=== PATIENT | male | born 1945 | race Caucasian/White ===

== ENCOUNTER 2017-04-24 12:17 | Inpatient (IN) ==
[2017-04-24] MEDS ORDERED: ALBUTEROL/IPRATROPIUM 3 ML NEB RESP TX STA (13:27)
[2017-04-24] MEDS ORDERED: FUROSEMIDE 40 MG/4 ML VIAL IV STA (13:27)
[2017-04-24 13:37] LABS: Basophils # 0.1 10*3/uL (0.0-0.2); Basophils % 0.8 % (0.0-0.8); Eosinophils % 0.6 % (0.00-10.9); Hematocrit 42.5 VOL% (42.0-52.0); Hemoglobin 14.8 GM/DL (14.0-18.0); Immature Granulocytes % 0.6 %; Immature Granulocytes Absolute 0.04 #; Lymphocytes # 1.2 10*3/uL (1.4-4.0); Lymphocytes % 17.4 % (21.2-54.2); Mean Corpuscular HGB Conc 34.8 GM/DL (32-36); Mean Corpuscular Hemoglobin 34 PG (27-34); Mean Corpuscular Volume 96.4 FL (87-102); Mean Platelet Volume 10.9 FL (9.6-12.0); Monocytes # 0.5 10*3/uL (0.11-0.8); Monocytes % 7.9 % (1.7-12.7); Neutrophils # 4.8 10*3/uL (1.4-7.4); Neutrophils % 72.7 % (38.7-73.9); Platelet Count 270 T/CUMM (130-400); Red Blood Count 4.41 MC/CUMM (3.8-5.5); Red Cell Distribution Width 13.7 % (9.3-17.3); White Blood Count 6.6 T/CUMM (4-12)
--- NOTE | 2017-04-24 13:42 | XRay Report ---
PA and lateral chest. Indication: Shortness of breath. The heart borders are not well-defined. The heart is probably enlarged. The pulmonary vasculature is prominent. There are bilateral areas of atelectasis or infiltrate and moderately large bilateral pleural effusions. Degenerative changes are present within the spinal column and shoulders. Impression: Infiltrates or atelectasis, and moderate bilateral pleural effusions obscure the heart margins, the heart is probably enlarged. PROCEDURE INTERPRETED AT [facility] DEPARTMENT OF RADIOLOGY Final Report Signed by: Dr. Kimberly Sanchez
[2017-04-24 13:47] LABS: Albumin 3.3 G/DL (3.4-5.0); Bilirubin,Total 1.9 MG/DL (0.2-1.0); CKMB % 5.5 %; Magnesium 2.1 MG/DL (1.8-2.4); Osmolality,Calculated 275.1 MOS/KG (273-304)
[2017-04-24] MEDS ORDERED: FUROSEMIDE 100 MG/10 ML VIAL ONE (13:50)
[2017-04-24 13:58] LABS: Troponin I Only 8.01 NG/ML (0.00-0.045)
[2017-04-24] MEDS ORDERED: ENOXAPARIN 100 MG/ML SYRINGE SUBCUT STA (14:20)
[2017-04-24] MEDS ORDERED: ENOXAPARIN 80 MG/0.8 ML SYRINGE SUBCUT ONE (14:21)
--- NOTE | 2017-04-24 14:47 | CT Report ---
CT chest PE study Indication: Shortness of breath. Elevated troponin. CT CHEST WITH CONTRAST, PE PROTOCOL DLP: 335 mGy*cm. One or more of the following dose reduction techniques was used: Automated exposure control, adjustment of the mA and/or kV according the patient size, or use of iterative reconstruction techniques. Comparison: None Technique: Axial CT images of the chest were obtained during the pulmonary arterial phase of contrast injection. Coronal reconstructions were provided. Omnipaque 350, 80 cc. Findings: No central, lobar or segmental pulmonary artery filling defects. Main pulmonary artery is normal in size. Heart is borderline enlarged. Aorta shows no aneurysmal change. Bilateral axillary lymphadenopathy is present, largest node right axilla measuring 10 mm short axis. No enlarged mediastinal nodes. Small left and moderate right pleural effusions are present with compressive atelectasis of the dependent lungs. There is some pleural-parenchymal scarring of both upper lobes. Lungs are, in general, otherwise clear. Contrast refluxed into the liver and hepatic veins is significant. Limited views of the upper abdomen are otherwise unremarkable. Impression: 1. No evidence of PE. 2. Borderline cardiomegaly. Contrast reflux into the IVC and hepatic veins consistent with right heart failure. 3. Moderate right and small left pleural effusions with associated atelectasis of the dependent lungs. 4. Bilateral axillary lymphadenopathy. No other enlarged nodes identified. PROCEDURE INTERPRETED AT [facility] DEPARTMENT OF RADIOLOGY Final Report Signed by: Omer Bales M.D.
--- NOTE | 2017-04-24 15:01 | Emergency Department Note ---
Rebecca Johansen Brittany, am scribing for, and in the presence of, Tobi Reed MD 13:33. Derek Johansen Charles R, MD, personally performed the services described in this documentation, ascribed by Arleth Fernandez in my presence, and it is both accurate and complete 501 . Arrival - Arrival Chief Complaint: Shortness of Breath Stated Complaint: Shortness of breath ED Nursing Triage Note: SENT FROM [facility] FOR SOB AND PEDAL EDEMA, Mode of Arrival: Ambulatory Limitations: No Limitations Source: Patient, Family Time Seen by Provider: 04/24/17 13:22 - History of Present Illness HPI Narrative: This is a 71 y/o white male, who presents to the ED for further evaluation of near syncopal episode. He denies any chest pain but notes SOB. He states there is a fluid build up. His friend states today at work he had a near syncopal episode. Pt states when he the SOB is worse with exertion and laying down flat. Pt's friend states he does not go to doctors like he should. Pt has no other complaints/pain in the ED at this time. Pt has a PMHx of Onset (ago): unknown Consistency: constant Severity: moderate Allergies/Adverse Reactions: Allergies Allergy/AdvReac Type Severity Reaction Status Date / Time No Known Allergies Allergy Unverified 04/24/17 12:55 Home Medications: Home Medications Medication Instructions Recorded Confirmed Type No Known Home Medications [No 04/24/17 04/24/17 History Known Home Medications] Review of System - Review of System 12 point system: reviewed and no additional remarkable complaints except as stated - Review of System Cardiovascular: Present: dyspnea on exertion, orthopnea. Absent: chest pain, syncope (Near syncopal episode) Medical,Surgical,& Family Hx - Social History Smoking Status: Smoker, status unknown Exam Vital Signs: Vital Signs Temperature 98.3 F 04/24/17 13:19 Pulse Rate 92 H 04/24/17 13:58 Respiratory Rate 19 04/24/17 13:58 Blood Pressure 142/88 04/24/17 13:19 O2 Sat by Pulse Oximetry 99 04/24/17 13:58 - General General appearance: alert, in no apparent distress - Head Head exam: Present: atraumatic, normocephalic, normal inspection - Eye Eye exam: Present: normal appearance, PERRL, EOMI. Absent: nystagmus - ENT ENT exam: Present: normal exam, mucous membranes moist - Neck Neck exam: Present: normal inspection, full ROM, trachea midline. Absent: tenderness - Chest Chest inspection: Present: normal inspection, symmetric chest wall rise. Absent : tenderness - Respiratory Respiratory exam: Present: rales, other (Tachypnea). Absent: normal lung sounds bilaterally, respiratory distress - Cardiovascular Cardiovascular exam: Present: regular rate, normal rhythm, normal heart sounds. Absent: murmur, rubs, gallop, clicks, JVD - Abdominal Exam Abdominal exam: Present: soft, distention (Slight swelling noted to the lower abdomen), normal bowel sounds. Absent: tenderness, guarding, rebound, rigidity - Rectal Exam Rectal exam: Present: deferred - Extremities Exam Extremities exam: Present: normal capillary refill, pedal edema (+3 pitting edema to the BLE). Absent: tenderness - Back Exam Back exam: Present: normal inspection, full ROM. Absent: tenderness, muscle spasm, rashes - Neurological Exam Neurological exam: Present: alert, oriented X3, CN II-XII intact. Absent: motor sensory deficit - Psychiatric Psychiatric exam: Present: normal affect, normal mood. Absent: depressed, agitated, anxious, flat affect, manic - Skin Skin exam: Present: warm, dry, intact, normal color. Absent: rash, cyanosis, diaphoresis, erythema, pallor, mottled Course - Consultations Consultation #1: Hospitalist will admit patient Time: 15:01 Results - Labs CBC & BMP: 04/24/17 13:12 04/24/17 13:12 Lab Results: I have reviewed the patients labs Labs: Laboratory Tests 04/24/17 04/24/17 04/24/17 13:12 13:12 13:12 WBC 6.6 RBC 4.41 Hgb 14.8 Hct 42.5 MCV 96.4 MCH 34 MCHC 34.8 RDW 13.7 Plt Count 270 MPV 10.9 Neut % (Auto) 72.7 Lymph % (Auto) 17.4 L [place] % (Auto) 7.9 Eos % (Auto) 0.6 Baso % (Auto) 0.8 Neut # (Auto) 4.8 Lymph # (Auto) 1.2 L [place] # (Auto) 0.5 Eos # (Auto) 0.0 Baso # (Auto) 0.1 Immature Gran % 0.6 Nucleated RBC % 0.0 Immature Gran # 0.04 Nucleated RBCs # 0.00 Immature Plt Fraction 0.0 D-Dimer, Quantitative Sodium 135 L Potassium 4.0 Chloride 98 Carbon Dioxide 23 Anion Gap 18.0 H BUN 30 H Creatinine 1.60 H GFR Calculation 50 BUN/Creatinine Ratio 18.00 Glucose 96 Calculated Osmolality 275.1 Calcium 9.0 Magnesium 2.1 Total Bilirubin 1.90 H AST 161 H ALT 83 H Alkaline Phosphatase 105 Total Creatine Kinase 374 H CK-MB (CK-2) 20.6 H CK and CKMB Interp 5.5 Troponin I 8.010 H B-Natriuretic Peptide 1348 H Total Protein 7.0 Albumin 3.3 L Globulin 3.7 H Albumin/Globulin Ratio 0.8 L 04/24/17 13:12 WBC RBC Hgb Hct MCV MCH MCHC RDW Plt Count MPV Neut % (Auto) Lymph % (Auto) [place] % (Auto) Eos % (Auto) Baso % (Auto) Neut # (Auto) Lymph # (Auto) [place] # (Auto) Eos # (Auto) Baso # (Auto) Immature Gran % Nucleated RBC % Immature Gran # Nucleated RBCs # Immature Plt Fraction D-Dimer, Quantitative 4.1 Sodium Potassium Chloride Carbon Dioxide Anion Gap BUN Creatinine GFR Calculation BUN/Creatinine Ratio Glucose Calculated Osmolality Calcium Magnesium Total Bilirubin AST ALT Alkaline Phosphatase Total Creatine Kinase CK-MB (CK-2) CK and CKMB Interp Troponin I B-Natriuretic Peptide Total Protein Albumin Globulin Albumin/Globulin Ratio - Diagnostic Findings Procedure: Chest x-ray: report reviewed by me (Infiltrates or atelectasis, and moderate bilateral pleural effusions obscure the heart margins, the heart is porbably englared. ) Critical Care Time Critical Care Time: Yes Total Critical Care Time: 60 Disposition Clinical Impression: Congestive heart failure, Acute dyspnea, Non-ST elevated myocardial infarction (non-STEMI), Generalized weakness, Elevated troponin Case discussed with: patient, patient's family Disposition: Still a Patient Condition: Guarded Time of Disposition: 15:02
--- NOTE | 2017-04-24 15:27 | Hospitalist History & Physical ---
Assessment and Plan - Time spent with patient Time spent with patient: Greater than 30 minutes (1) Elevated troponin Status: Acute Assessment and plan: 04/24/17 - Troponin 8.010; CK-MB 20.6; Total Creatine Kinase 374; BNP 1348; Admit to CCU for close observation. Repeat A.M. labs and Serial troponin; repeat EKG; order Lipid panel; Need Echo. Start: ASA; Beta veda; IV lasix; ILIANA Inhibitor. Consult Cardiology. Will Discuss with Dr Narayan for further recommendations in care. Current Visit: Yes (2) Acute dyspnea Status: Acute Assessment and plan: 04/24/17 Patient feels better with rest. Exertional Shortness of Breath. Troponin 8.010; BNP 1348; will repeat labs, will closely monitor in CCU; consult cardiology. Current Visit: Yes History of Present Illness Chief complaint: shortness of breath History of present illness: Mr. Ortega is a 71 year old white male with no significant PMHx presented to the ED for evaluation of 2 week history of shortness of breath that is worse with exertion and relieve with rest. He denies any nausea, vomiting, chest pain , dizziness, fever or chills. Denies any surgical history. FMHx significant : Mother: HTN; Brother and Sister: CVA. In ED:EKG: NO stemi; CXR: infiltrates or atelectasis and moderate bilateral pleural effusions obscure the heart margins, the heart is probably enlarged. Chest CT: No evidence of PE; borderline cardiomegaly, contrast reflux into the IVC and hepatic veins consistent with right heart failure, moderate right and small left pleural effusions with associated atelectasis of the dependent lungs; bilateral axillary lymphadenopathy; no other enlarged nodes identified. Denies alcohol use ; denies illicit drug use. He reports quit smoking about 6 years ago (History was a 1-2 pack per day smoker) [facility]. After discussion with Dr Reed in the ED and Dr Narayan with Hospital [facility], it was agreed to admit patient to CCU for close observation. He is currently on NO home medications. Home Medications Medication Instructions Recorded Confirmed Type No Known Home Medications [No 04/24/17 04/24/17 History Known Home Medications] Allergies Allergy/AdvReac Type Severity Reaction Status Date / Time No Known Allergies Allergy Unverified 04/24/17 12:55 Medical,Surgical,& Family Hx - Medical History Medical History: noncontributory - Surgical History Surgical History: noncontributory - Family History Family History: Reports;: Family Hypertension (mother), Family Stroke (brother and sister) - Social History Smoking Status: Smoker, status unknown (quit smoking 6 years ago (History: 1-2 pack per day smoker for unknown amount of years)) Frequency of Alcohol Use: None Type of Drug Use: None Marital Status: Lives With:: Spouse Functional capacity: independent ambulation Review of systems: ROS completed and pertinent positives and negatives in the HPI. Exam - Constitutional Vitals: Period Temp Pulse Resp BP Sys/Cano Pulse Ox Last 24 Hr 98.3 F-98.3 F 88-95 19-22 142-142/88-88 98-99 General appearance: normal weight - Head Head exam: Present: normal inspection - Eye Eye exam: Present: EOMI Pupils: Present: [place] - Neck Neck exam: Present: normal inspection. Absent: thyromegaly - Respiratory Respiratory exam: Present: clear to auscultation bilaterally. Absent: rhonchi, stridor, wheezes - Cardiovascular Cardiovascular exam: Present: regular rate and rhythm - GI/Abdominal GI/Abdominal exam: Present: normal bowel sounds, soft. Absent: tenderness, rebound - Extremities Exam Extremities exam: Present: normal inspection, full ROM, edema (2+ edema bilateral lower extremities) - Neurological Exam Neurological exam: Present: alert, oriented X3, CN II-XII intact - Psychiatric Psychiatric exam: Present: normal affect, normal mood. Absent: agitated, anxious - Skin Skin exam: Present: normal color, warm, dry Results - Labs CBC & BMP: 04/24/17 13:12 04/24/17 13:12 Lab Results: I have reviewed the past 24 hour labs Labs: Troponin 8.010 BNP 1348 CK-MB 20.6 Total Creatine Kinase 374 AST 161 ALT 83 D-Dimer 4.1
[2017-04-24] MEDS ORDERED: MORPHINE 2 MG/1 ML SYRINGE IV PRN (15:47)
[2017-04-24] MEDS ORDERED: ACETAMINOPHEN 325 MG TABLET PO PRN (15:47)
[2017-04-24] MEDS ORDERED: MAGNESIUM HYDROXIDE SUSP 30 ML UDCUP PO PRN (15:47)
[2017-04-24] MEDS ORDERED: ONDANSETRON 4 MG/2 ML VIAL IV PRN (15:47)
[2017-04-24] MEDS ORDERED: SODIUM CHLORIDE 0.45% 1,000 ML IV SCH (16:00)
[2017-04-24] MEDS ORDERED: ENOXAPARIN 40 MG/0.4 ML SYRINGE SUBCUT SCH (16:00)
--- NOTE | 2017-04-24 16:02 | Cardiology Consult Note ---
Assessment and Plan - Time spent with patient Time spent with patient: Greater than 30 minutes (Exam documentation interview orders) (1) Ischemic cardiomyopathy Status: Chronic Assessment and plan: This is a first presentation of failure he clearly has cardiomyopathy my exam chest x-ray history and EKG would suggest ischemic etiology with Q waves of ventricular tachycardia which is nonsustained. The patient is a reformed smoker his lipid status is unknown he is not diabetic he has an equivocal family history. I recommended left heart catheterization selective coronary angiography and possible Cage coronary mention which we tried to diurese over the evening. He had CT contrast today we will to make sure that he recovers from that before giving additional contrast load in the face of acute diuresis Current Visit: Yes (2) Nonsustained ventricular tachycardia Status: Acute Assessment and plan: Seen on the EKG no syncope no palpitations Current Visit: Yes (3) Heart failure, systolic, with acute decompensation Status: Chronic Assessment and plan: This is a subacute presentation and I suspect this is a chronic situation with acute presentation of decompensation Current Visit: Yes (4) Renal insufficiency Status: Acute Current Visit: Yes (5) Chronic passive hepatic congestion Status: Acute Assessment and plan: Patient has a history of malaria and states that this is why he "cannot take a cholesterol medicine" I suspect this is hepatic congestion now based on his findings Current Visit: Yes History of Present Illness - Data of Consult Patient: new to practice Consult date: 04/24/17 Requesting Physician: Tobi Reed - Consult Narrative Reason for consult: Shortness of breath pleural effusions History of present illness: Mr. Ortega is a 71 year old male with no significant past medical history he takes no medications he seen at the [facility] he was last seen there in October for pneumonia. The patient presents because of fatigue and progressive shortness of breath over the last 2 weeks. He has impressive lower extremity edema he sleeps on his many pillows as he can get his hands on. 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 That is where he resides with his of 35 years. He helps take care of her she is wheelchair-bound. He denies any chest pain. He walks very little in his job mainly rides in the golf cart they provide him. He has no family history of of coronary disease documented in his mother may have had coronary disease but he is on aware of the specifics he has a brother with strokes. The patient has reformed smoker he quit approximately 6 years ago. No chest pain no orthopnea no lower extremity edema his lipid status is unknown. He has mild renal insufficiency that apparently was diagnosed today. I reviewed his chest x-ray has bilateral pleural effusions and cardiomegaly is mild fluid on the right gutter. CC: - Home Medications and Allergies Home Medications: Home Medications Medication Instructions Recorded Confirmed Type No Known Home Medications [No 04/24/17 04/24/17 History Known Home Medications] Allergies/Adverse Reactions: Allergies Allergy/AdvReac Type Severity Reaction Status Date / Time No Known Allergies Allergy Unverified 04/24/17 12:55 - Constitutional Constitutional: Present: weight gain. Absent: anorexia, chills, lethargy, malaise, stops breathing during sleep, weight loss - EENT Eyes: Absent: blurry vision Ears: Absent: ear discharge, ear pain Nose, mouth and throat: Absent: dysphagia, epistaxis, nasal congestion, neck mass - Cardiovascular Cardiovascular: Present: dyspnea, dyspnea on exertion, edema, orthopnea. Absent : radiating jaw, neck or arm pain, lightheadedness, palpitations - Respiratory Respiratory: Present: dyspnea, dyspnea on exertion. Absent: cough - Gastrointestinal Gastrointestinal: Absent: abdominal pain, bloating, cramping, dyspepsia, dysphagia - Genitourinary Genitourinary: Absent: difficulty urinating, dysuria, hematuria - Musculoskeletal Musculoskeletal: Absent: arthralgias, joint swelling - Neurological Neurological: Absent: abnormal gait, abnormal speech, confusion, convulsions, disequilibrium, dizziness - Psychiatric Psychiatric: Absent: anxiety, depression - Endocrine Endocrine: Absent: cold intolerance, heat intolerance - Hematologic/Lymphatic Hematologic/Lymphatic: Absent: easy bleeding, easy bruising Medical,Surgical,& Family Hx - Medical History Other: History of: Miscellaneous Medical Problems (malaria) - Family History Family History: Reports;: Family Hypertension (mother), Family Stroke (brother and sister) - Social History Smoking Status: Smoker, status unknown (quit smoking 6 years ago (History: 1-2 pack per day smoker for unknown amount of years)) Frequency of Alcohol Use: None Type of Drug Use: None Marital Status: Lives With:: Spouse Functional capacity: independent ambulation Physical Examination Vital Signs Temp Pulse Resp BP Pulse Ox 98.3 F 88 22 142/88 98 04/24/17 12:51 04/24/17 12:51 04/24/17 12:51 04/24/17 12:51 04/24/17 12:51 General: Present: Appears Well, Other (He is disheveled) Neck: Present: Supple Neck Cardiac: Present: Reg Rate and Rhythm, S1/S2, S3, Other (Has JVD to the angle of the jaw) Lungs: Present: Normal Exam (Bilateral rales and diminished breath sounds he has egophony on the left) Neuro: Present: Cranial Nerve 2-12 Intact Abdomen: Present: Active Bowel Sounds (I did not palpate his liver edge. It was difficult to get him to quit talking), No Masses Skin: Present: Other Extremities: Present: +2 Edema (Chronic brawny edematous changes) Result/EKG - Labs CBC & BMP: 04/24/17 13:12 04/24/17 13:12 Labs: Laboratory Results - last 24 hr 04/24/17 04/24/17 04/24/17 13:12 13:12 13:12 WBC 6.6 RBC 4.41 Hgb 14.8 Hct 42.5 MCV 96.4 MCH 34 MCHC 34.8 RDW 13.7 Plt Count 270 MPV 10.9 Neut % (Auto) 72.7 Lymph % (Auto) 17.4 L [place] % (Auto) 7.9 Eos % (Auto) 0.6 Baso % (Auto) 0.8 Neut # (Auto) 4.8 Lymph # (Auto) 1.2 L [place] # (Auto) 0.5 Eos # (Auto) 0.0 Baso # (Auto) 0.1 Immature Gran % 0.6 Nucleated RBC % 0.0 Immature Gran # 0.04 Nucleated RBCs # 0.00 Immature Plt Fraction 0.0 D-Dimer, Quantitative Sodium 135 L Potassium 4.0 Chloride 98 Carbon Dioxide 23 Anion Gap 18.0 H BUN 30 H Creatinine 1.60 H GFR Calculation 50 BUN/Creatinine Ratio 18.00 Glucose 96 Calculated Osmolality 275.1 Calcium 9.0 Magnesium 2.1 Total Bilirubin 1.90 H AST 161 H ALT 83 H Alkaline Phosphatase 105 Total Creatine Kinase 374 H CK-MB (CK-2) 20.6 H CK and CKMB Interp 5.5 Troponin I 8.010 H B-Natriuretic Peptide 1348 H Total Protein 7.0 Albumin 3.3 L Globulin 3.7 H Albumin/Globulin Ratio 0.8 L 04/24/17 13:12 WBC RBC Hgb Hct MCV MCH MCHC RDW Plt Count MPV Neut % (Auto) Lymph % (Auto) [place] % (Auto) Eos % (Auto) Baso % (Auto) Neut # (Auto) Lymph # (Auto) [place] # (Auto) Eos # (Auto) Baso # (Auto) Immature Gran % Nucleated RBC % Immature Gran # Nucleated RBCs # Immature Plt Fraction D-Dimer, Quantitative 4.1 Sodium Potassium Chloride Carbon Dioxide Anion Gap BUN Creatinine GFR Calculation BUN/Creatinine Ratio Glucose Calculated Osmolality Calcium Magnesium Total Bilirubin AST ALT Alkaline Phosphatase Total Creatine Kinase CK-MB (CK-2) CK and CKMB Interp Troponin I B-Natriuretic Peptide Total Protein Albumin Globulin Albumin/Globulin Ratio - EKG EKG results: interpreted by me (Sinus rhythm he has nonsustained VT during the exam precipitated by PVCs, low voltage in the chest leads he got old anteroseptal myocardial infarction)
[2017-04-24] MEDS ORDERED: MAGNESIUM SULF RIDER 2 GM in PREMIX 1 EACH IV PRN (16:10)
[2017-04-24] MEDS ORDERED: POTASSIUM CHLORIDE RIDER 10 MEQ in PREMIX 1 EACH IV PRN (16:10)
--- NOTE | 2017-04-24 17:40 | ECHO Report ---
Tobi Ortega Exam Date: 04/24/2017 16:07 Referring Physician: Technologist: lawanda Ayala ARDMS, RVT Age: 71 Ht (in): 71 Wt (lb): 183 Gender: M Exam Location: [facility] Echo Indications: Shortness of breath, Dyspnea on exertion BP: 142 / 88 HR: 89 Rhythm: Sinus Technical Quality: Good IMPRESSIONS Severely reduced LV systolic function, ejection fraction 10% with regional wall motion as described below but Grade 3/4 diastolic dysfunction consistent with restricted filling pattern. Mildly dilated left ventricle. Mild right ventricular enlargement. Moderate biatrial enlargement. Moderate to severe mitral regurgitation. Severe tricuspid regurgitation. Pulmonary hypertension with pulmonary artery pressure estimated at 45 mmHg. Left ventricular apical thrombus. Left-sided pleural effusion with a large circumscribed mass. This area may correspond with atelectasis as described on chest CT. MEASUREMENTS (Male / Female) Normal Values 2D ECHO LV Diastolic Diameter PLAX 6.0 cm 4.2 - 5.9 / 3.9 - 5.3 cm LV Systolic Diameter PLAX 5.8 cm LV Fractional Shortening PLAX 4.0 % IVS Diastolic Thickness 1.1 cm 0.6 - 1.0 / 0.6 - 0.9 cm LVPW Diastolic Thickness 1.1 cm 0.6 - 1.0 / 0.6 - 0.9 cm RV Internal Dim ED PLAX 3.1 cm Aortic Root Diameter 3.2 cm LA Systolic Diameter LX 5.3 cm 3.0 - 4.0 / 2.7 - 3.8 cm DOPPLER TR Peak Velocity 296.0 cm/s TR Peak Gradient 35.0 mmHg FINDINGS Left Ventricle Moderately increased left ventricular cavity size. Normal left ventricular wall thickness. Left ventricular ejection fraction is estimated at 10%. There is severe global hypokinesis although the inferior wall, apex and adjacent distal lateral wall appear more akinetic. The inferior wall also appears thinned and hyperechoic consistent with possible scarring. Right Ventricle Mildly increased right ventricular size. Right Atrium The right atrium is mildly enlarged. Left Atrium Moderately increased left atrial size. Mitral Valve Morphologically normal mitral valve. Moderate mitral valve regurgitation. Aortic Valve Morphologically normal aortic valve without significant sclerosis or stenosis. There is no aortic regurgitation. Tricuspid Valve Morphologically normal tricuspid valve. Moderate tricuspid valve regurgitation. Tricuspid regurgitation velocities suggest a PAP of 45 mmHg. Pulmonic Valve Morphologically normal pulmonic valve without significant stenosis. There is no pulmonic regurgitation. Pericardium Normal pericardium without effusion. Aorta Normal ascending aorta dimension. Barbie Meier MD (Electronically Signed) Final Date: 24 April 2017 17:38
[2017-04-24] MEDS: FUROSEMIDE 40 MG/4 ML VIAL IV SCH (18:24)
[2017-04-24] MEDS: ATORVASTATIN 20 MG TABLET PO SCH (20:19)
[2017-04-24] MEDS: CARVEDILOL 3.125 MG TABLET PO SCH (20:19)
--- NOTE | 2017-04-25 02:43 | EKG Report ---
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
--- NOTE | 2017-04-25 02:44 | EKG Report ---
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
[2017-04-25 04:37] LABS: Basophils % 0.8 % (0.0-0.8); Eosinophils # 0.1 10*3/uL (0.0-0.87); Eosinophils % 1.4 % (0.00-10.9); Hematocrit 39.5 VOL% (42.0-52.0); Hemoglobin 13.6 GM/DL (14.0-18.0); Immature Granulocytes % 0.6 %; Immature Granulocytes Absolute 0.03 #; Lymphocytes # 0.9 10*3/uL (1.4-4.0); Lymphocytes % 18.1 % (21.2-54.2); Mean Corpuscular HGB Conc 34.4 GM/DL (32-36); Mean Corpuscular Hemoglobin 33 PG (27-34); Mean Corpuscular Volume 96.1 FL (87-102); Monocytes # 0.5 10*3/uL (0.11-0.8); Monocytes % 9.2 % (1.7-12.7); Neutrophils # 3.4 10*3/uL (1.4-7.4); Neutrophils % 69.9 % (38.7-73.9); Platelet Count 227 T/CUMM (130-400); Red Blood Count 4.11 MC/CUMM (3.8-5.5); White Blood Count 4.9 T/CUMM (4-12)
[2017-04-25 05:07] LABS: Calcium 8.6 MG/DL (8.5-10.1); Osmolality,Calculated 276.2 MOS/KG (273-304); Potassium 3.9 MMOL/L (3.5-5.1)
[2017-04-25 05:12] LABS: Albumin 3.1 G/DL (3.4-5.0); Bilirubin,Total 1.8 MG/DL (0.2-1.0); Calcium 8.4 MG/DL (8.5-10.1); Magnesium 2.2 MG/DL (1.8-2.4); Osmolality,Calculated 276.2 MOS/KG (273-304); Potassium 3.9 MMOL/L (3.5-5.1); Risk Ratio 4.34; Total Protein 6.4 G/DL (6.4-8.3); VLDL CHOLESTEROL 15.4 MG/DL
[2017-04-25] MEDS ORDERED: diphenhydrAMINE CAP 25 MG CAPSULE PO ONE (07:00)
[2017-04-25] MEDS ORDERED: DIAZEPAM 5 MG TABLET PO ONE (07:00)
[2017-04-25] MEDS: FUROSEMIDE 40 MG/4 ML VIAL IV SCH ×3 (07:01→16:31)
--- NOTE | 2017-04-25 07:31 | EKG Report ---
Stationary ECG Study [facility] ER Test Date: 04/24/2017 12:58:41 PM Pat Name: KHURRAM RIBEIRO Department: Room: 120 Gender: M Barkeep: Jim Tang : 1945 Requested by: Marcella Narayan Order Number: [id number] Reading MD: VALENCIA CORONA Intervals [place] Rate: 92 P: 85 VT: 131 QRS: 83 QRSD: 118 T: 261 QT: 368 QTc: 417 Interpretive Statements SINUS RHYTHM WITH FREQUENT VENTRICULAR PREMATURE COMPLEXES INFERIOR INFARCT, AGE UNDETERMINED POSSIBLE ANTEROLATERAL INFARCT, AGE UNDETERMINED MINIMAL ST DEPRESSION Electronically Signed On 04-25-17 11:57:28 CDT by VALENCIA CORONA [email or web address]
[2017-04-25] MEDS ORDERED: LISINOPRIL 5 MG TABLET PO SCH (09:00)
[2017-04-25] MEDS ORDERED: ASPIRIN EC 325 MG TABLET PO SCH (09:00)
[2017-04-25] MEDS: ASPIRIN EC 81 MG TABLET PO SCH (10:20)
[2017-04-25] MEDS: CARVEDILOL 3.125 MG TABLET PO SCH ×2 (10:20→22:07)
[2017-04-25] MEDS: PANTOPRAZOLE 40 MG TABLET PO SCH (10:21)
[2017-04-25] MEDS ORDERED: MIDAZOLAM 2 MG/2 ML VIAL ONE (10:35)
[2017-04-25] MEDS ORDERED: LIDOCAINE 1% 20 ML VIAL ONE (10:35)
[2017-04-25] MEDS ORDERED: HEPARIN/NACL 0.9% 2 UNITS/ML 1,000 ML IV ONE (10:35)
[2017-04-25] MEDS ORDERED: fentaNYL 100 MCG/2 ML VIAL ONE (10:36)
--- NOTE | 2017-04-25 10:43 | History and Physical Update ---
Sedation H&P Update - History and Physical H&P was reviewed, the patient examined and there: are no changes in the patients condition since last H&P was completed. - Dictation Physical: refer to H&P completed by admitting physician - Physical Exam Mental Status: alert and oriented Heart: regular rate and rhythm Lung: clear to auscultation Abdomen: within normal limits Vitals: within normal limits - Sedation Plan for Sedation: moderate Patient Consent: Procedure disscussed with patient and patinet has consented., Risks and benefits were discussed with patient,including infection,, bleeding, injury to surrounding structures, seizure, temporary nerve, Patient understands and accepts potential risks/benefits and agrees to, proceed. ASA Class: IV Airway Assessment: Class II: Soft palate, uvula, fauces visible
--- NOTE | 2017-04-25 10:48 | Hospitalist Progress Note ---
Assessment and Plan - Time spent with patient Time spent with patient: Less than 30 minutes (1) Elevated troponin Status: Acute Assessment and plan: 04/25/17 Echo showed EF 10% Heart catherization completed 04/25/17 and patient in CCU room 120 for close monitoring and recovery Will repeat a.m. labs. Will continue to monitor closely. Will continue to follow cardiology further recommendations with care. 04/24/17 - Troponin 8.010; CK-MB 20.6; Total Creatine Kinase 374; BNP 1348; Admit to CCU for close observation. Repeat A.M. labs and Serial troponin; repeat EKG; order Lipid panel; Need Echo. Start: ASA; Beta veda; IV lasix; ILIANA Inhibitor. Consult Cardiology. Will Discuss with Dr Narayan for further recommendations in care. Current Visit: Yes (2) Acute dyspnea Status: Acute Assessment and plan: 04/25/17 troponin at midnight was 9.760. S/P heart catherization resting without any distress or discomfort. 04/24/17 Patient feels better with rest. Exertional Shortness of Breath. Troponin 8.010; BNP 1348; will repeat labs, will closely monitor in CCU; consult cardiology. Current Visit: Yes Hospitalist: Subjective Interval history: 04/25/17 10:20 a.m.- Patient had already gone done heart catherization lab, will re-check on him post-operatively. 04/25/17: @ 12:30 -Mr Ortega was seen and chart reviewed. Patient in CCU room 120 is s/p heart catherization, awake, alert and in no acute distress. Denies any shortness of breath, chest pain , or abdominal pain at time of exam. Laying flat and without any acute distress. He states that he had a good night last night and no shortness of breath. Hemodynamically stable at present. Exam - Constitutional Vitals: Period Temp Pulse Resp BP Sys/Cano Pulse Ox Last 24 Hr 96.9 F-98.3 F 69-95 10-30 103-142/72-93 92-99 General appearance: normal weight - Head Head exam: Present: normal inspection - Eye Eye exam: Present: EOMI Pupils: Present: SAL[place] - Neck Neck exam: Present: normal inspection. Absent: thyromegaly - Respiratory Respiratory exam: Present: clear to auscultation bilaterally. Absent: stridor, wheezes - Cardiovascular Cardiovascular exam: Present: regular rate and rhythm - GI/Abdominal GI/Abdominal exam: Present: normal bowel sounds, soft. Absent: tenderness, rebound - Extremities Exam Extremities exam: Absent: edema - Neurological Exam Neurological exam: Present: alert, oriented X3 - Psychiatric Psychiatric exam: Present: normal affect, normal mood, other (denies any pain at present). Absent: agitated, anxious - Skin Skin exam: Present: normal color, warm, dry Results - Labs CBC & BMP: 04/25/17 04:09 04/25/17 04:09 Lab Results: I have reviewed the past 24 hour labs Labs: ECHO done 04/24/17: IMPRESSIONS Severely reduced LV systolic function, ejection fraction 10% with regional wall motion as described below but Grade 3/4 diastolic dysfunction consistent with restricted filling pattern. Mildly dilated left ventricle. Mild right ventricular enlargement. Moderate biatrial enlargement. Moderate to severe mitral regurgitation. Severe tricuspid regurgitation. Pulmonary hypertension with pulmonary artery pressure estimated at 45 mmHg. Left ventricular apical thrombus. Left-sided pleural effusion with a large circumscribed mass. This area may correspond with atelectasis as described on chest CT. Heart Catherization on 04/25/17: Findings: 1. The left main artery has a shelflike lesion in the distal segment there is 80-90% obstructive in the left main artery. This plaque extends into the LAD creating 100% occlusion, as well as into an intermediate ramus branch and circumflex artery causing severe 80-90% stenosis at the ostia of these vessels. 2. The left anterior descending artery is 100% occluded at the ostium. There is some faint left to left collateralization and some more robust right to left collateralization. 3. There is an intermediate ramus branch that is small and has severe ostial disease. 4. The circumflex artery has 80-90% stenosis at its ostium. The first obtuse marginal artery is also subtotally occluded, and has 90% stenosis at its ostium. The mid circumflex has 90% stenosis. More distally, in a marginal branch (the most inferior) there is 100% occlusion with some homo- collateralization. The circumflex artery provides some left to right collateralization of the distal right coronary artery. 5. The right coronary artery is 100% occluded in the proximal segment. It provides right to left collateralization of the LAD. 6. The right iliac artery has mild atheromatous disease but is without evidence of vascular complications.
[2017-04-25] MEDS ORDERED: ACETAMINOPHEN/CODEINE 300-30 MG TABLET PO PRN (11:23)
[2017-04-25] MEDS ORDERED: NITROGLYCERIN SL 0.4 MG TABLET SL PRN (11:23)
--- NOTE | 2017-04-25 11:38 | Cardiology Operative Report ---
Date of Procedure:: 04/25/17 Pre-op diagnosis: Cardiomyopathy, non-STEMI Post-op diagnosis: other (Severe multivessel coronary artery disease, ischemic heart myopathy) Procedure: 1. Selective left and right coronary angiography. 2. Left heart catheterization was not performed due to left ventricular thrombus. 3. Right iliac angiography to rule out vascular complications. 4. Application of Mynx hemostasis device to the right femoral arteriotomy site. Impression: 1. Severe three-vessel coronary artery disease. A. Left main with shelflike 80-90% stenosis in the distal segment that extends into the LAD causing 100% occlusion, the intermediate ramus, circumflex and first obtuse marginal artery creating severe stenosis at the origins of all of these vessels. B. LAD with 100% ostial stenosis. There is some faint left to left collateralization and more brisk right to left collateralization. C. Ostial small intermediate ramus branch with 80-90% stenosis. D. Ostial circumflex with 80-90% stenosis. More distally there is severe stenosis of the first obtuse marginal artery with 90% ostial stenosis in the more distal subtotal occlusion, 90% stenosis in the mid circumflex artery, and 100% stenosis with, collateralization of a low marginal branch. E. Right coronary artery 100% occluded with right to left collateralization. There is some faint distal right coronary left to right collateralization from the circumflex system. 2. Right dominant coronary arteries. 3. Ejection fraction not assessed with LV gram due to known left ventricular thrombus. 4. Mild atheromatous disease of the right iliac artery without evidence of vascular complications. Plan: 1. The patient has very complex disease and is a very poor surgical candidate. Consider viability study to evaluate anterior and inferior wall viability, as well as the lateral wall. Consideration of high risk left main and circumflex stenting can be considered depending on the results of the studies, although this may not urn affect his long-term prognosis. 2. Continue with medical therapy and risk factor modification.. Equipment: Diagnostic 6 Congolese JL4, JR4 catheters. Hemodynamics: Aortic pressure 99/63 mmHg Sedation: Versed 1 mg, fentanyl 25 mcg Procedure: After informed consent was obtained the patient was prepped and draped in sterile fashion. The right groin was infiltrated with 1% lidocaine and the right femoral artery was accessed via modified Seldinger technique using a micropuncture needle and a 6 Congolese femoral arterial sheath was placed. All catheter exchanges were performed over a guidewire under fluoroscopic guidance. Diagnostic 6 Congolese JL4 and JR4 catheters were advanced to the left and right coronary arteries respectively and multiple cineangiograms were performed in varying degrees of obliquity and angulation. At conclusion of the procedure right iliac angiography was performed to rule out vascular complications. A mynx hemostasis device was then successfully applied to the right femoral arteriotomy site. Findings: 1. The left main artery has a shelflike lesion in the distal segment there is 80-90% obstructive in the left main artery. This plaque extends into the LAD creating 100% occlusion, as well as into an intermediate ramus branch and circumflex artery causing severe 80-90% stenosis at the ostia of these vessels. 2. The left anterior descending artery is 100% occluded at the ostium. There is some faint left to left collateralization and some more robust right to left collateralization. 3. There is an intermediate ramus branch that is small and has severe ostial disease. 4. The circumflex artery has 80-90% stenosis at its ostium. The first obtuse marginal artery is also subtotally occluded, and has 90% stenosis at its ostium. The mid circumflex has 90% stenosis. More distally, in a marginal branch (the most inferior) there is 100% occlusion with some homo- collateralization. The circumflex artery provides some left to right collateralization of the distal right coronary artery. 5. The right coronary artery is 100% occluded in the proximal segment. It provides right to left collateralization of the LAD. 6. The right iliac artery has mild atheromatous disease but is without evidence of vascular complications. Contrast use: Visipaque 69 cc Fluoro time: 1.4 minutes Complications: none Specimens removed: none Devices implanted: Mynx Anesthesia: moderate conscious sedation Surgeon / Physician: Barbie Meier Linen Room Worker: none (Chris Kay CRNA) Estimated blood loss: minimal Specimens: none sent Condition: stable Disposition: ICU/CCU
[2017-04-25] MEDS: ENOXAPARIN 80 MG/0.8 ML SYRINGE SUBCUT SCH (16:31)
[2017-04-25] MEDS: ATORVASTATIN 20 MG TABLET PO SCH (22:23)
[2017-04-26] MEDS: ENOXAPARIN 80 MG/0.8 ML SYRINGE SUBCUT SCH ×2 (04:24→15:14)
[2017-04-26 06:22] LABS: Basophils # 0.1 10*3/uL (0.0-0.2); Basophils % 1.3 % (0.0-0.8); Eosinophils # 0.2 10*3/uL (0.0-0.87); Eosinophils % 4.3 % (0.00-10.9); Hematocrit 40.6 VOL% (42.0-52.0); Hemoglobin 14.2 GM/DL (14.0-18.0); Immature Granulocytes % 0.9 %; Immature Granulocytes Absolute 0.05 #; Lymphocytes # 0.7 10*3/uL (1.4-4.0); Mean Corpuscular Hemoglobin 34 PG (27-34); Mean Corpuscular Volume 95.8 FL (87-102); Mean Platelet Volume 11.7 FL (9.6-12.0); Monocytes # 0.6 10*3/uL (0.11-0.8); Monocytes % 10.4 % (1.7-12.7); NRBC # 0.04 10*3/uL; Neutrophils # 3.9 10*3/uL (1.4-7.4); Neutrophils % 70.1 % (38.7-73.9); Platelet Count 157 T/CUMM (130-400); Red Blood Count 4.24 MC/CUMM (3.8-5.5); Red Cell Distribution Width 14.1 % (9.3-17.3); White Blood Count 5.6 T/CUMM (4-12)
[2017-04-26 06:28] LABS: Calcium 8.1 MG/DL (8.5-10.1); Magnesium 2.2 MG/DL (1.8-2.4); Potassium 3.9 MMOL/L (3.5-5.1)
--- NOTE | 2017-04-26 06:53 | Cardiology Progress Note ---
Junito Johansen Vanessa RN, am scribing for, and in the presence of, Jes Ramso DO 06 :52. Assessment and Plan - Time spent with patient Time spent with patient: Greater than 30 minutes (1) Heart failure, systolic, with acute decompensation Status: Chronic Assessment and plan: Severely reduced LV systolic function, EF 10%, global hypokinesis. Current Visit: Yes (2) Chronic passive hepatic congestion Status: Acute Assessment and plan: Initial LFT elevation on admission now trending upward with AST 1120, ALT 885. Suspect hepatic congestion based on clinical findings. Current Visit: Yes (3) Elevated troponin Status: Acute Assessment and plan: Positive troponin greater than 8 which initially trended downward after admission but is now trended back up this morning to 9.76. He is denying any chest discomfort or anginal complaint. EKG is stable. Current Visit: Yes (4) Nonsustained ventricular tachycardia Status: Acute Assessment and plan: Noted prior EKG on admit. He has been asymptomatic with this, and has not experienced any syncope, palpitations, or other. Appears to be improved since admission. Current Visit: Yes (5) Renal insufficiency Status: Acute Assessment and plan: Unsure of chronicity of renal insufficiency. Baseline creatinine upon admission at 1.6 and unchanged this morning after overnight diuresis and receiving contrast or chest CT. Will monitor closely and avoid nephrotoxic agents as possible in face of aggressive diuresis and heart cath later today Current Visit: Yes (6) Ischemic cardiomyopathy Status: Chronic Assessment and plan: Clinical findings and history suggestive of ischemic etiology. He will undergo left heart catheterization for further definitive assessment. Current Visit: Yes Cardiology - PN: Subj Interval history: SUPERVISOR ORCHARD: DR. RAMOS (NEW) Summary: Mr. Ortega, 71-year-old WM, who denies significant past medical history and equivocal family history was admitted to [place] [facility] yesterday after presenting with fatigue, progressive dyspnea over the course of 2 weeks, significant lower extremity edema, and orthopnea. Patient is a reformed smoker reporting having quit 6 years ago after smoking for approximately 50 years. Chest x-ray revealed bilateral pleural effusions and cardiomegaly, mild fluid of right gutter. BNP 1348. He denied experiencing any exertional chest discomfort. Echocardiogram obtained on admission showing severely reduced LV function, EF 10%, moderate diastolic dysfunction, moderate biatrial enlargement moderate to severe MR and TR with pulmonary hypertension (PA pressure 45 mmHg). He also has a left ventricular apical thrombus with left-sided pleural effusion with large mass. Elevated troponin level 8.010 with CPK 374. LFTs elevated which patient contributed to having malaria fever when he was young. EKG noted to have Q waves and some nonsustained VT, but overall regular rate and rhythm. He was asymptomatic with this and denies syncope, palpitation, etc. cardiology was consulted for cardiac workup. April: Mr. Ortega has been observed closely overnight in the CCU. Serial troponin levels show an initial downward but this morning has trended upward with a troponin level 9.76. He is not having any chest pain this morning. He feels that he is breathing better, and he is not using any supplemental oxygen. Systolic BP 115-130 mmHg range. Fasting lipid panel reviewed. LFTs also with moderate increase, AST 1120, ALT 885 (AST 161, ALT 83 on admit). Review of electronic device monitor strips available in chart shows sinus rhythm with heart rate averaging in the 70s. Patient's case has been discussed with Dr. Barbie Meier, and she has seen and examined this morning also. Patient has been held NPO, and he will undergo left heart catheterization to define coronary anatomy and possible revascularization later this morning per Dr. Meier. I saw Mr. Ortega briefly before his left heart cath. Exam (Progress Note) - Constitutional Vitals: Period Temp Pulse Resp BP Sys/Cano Pulse Ox Last 24 Hr 96.9 F-98.3 F 69-95 10-30 103-142/72-93 92-99 Exam: General: Present: Appears Well, Other (He is disheveled) Neck: Present: Supple Neck Cardiac: Present: Reg Rate and Rhythm, S1/S2, S3, Other (Has JVD to the angle of the jaw) Lungs: Present: Normal Exam (Bilateral rales and diminished breath sounds he has egophony on the left) Neuro: Present: Cranial Nerve 2-12 Intact Abdomen: Present: Active Bowel Sounds (I did not palpate his liver edge. It was difficult to get him to quit talking), No Masses Skin: Present: Other Extremities: Present: +2 Edema (Chronic brawny edematous changes) Result/EKG - Labs CBC & BMP: 04/26/17 04:28 04/26/17 04:28 Lab Results: I have reviewed the past 24 hour labs Labs: Laboratory Results - last 24 hr 04/24/17 04/24/17 04/24/17 13:12 13:12 13:12 WBC 6.6 RBC 4.41 Hgb 14.8 Hct 42.5 MCV 96.4 MCH 34 MCHC 34.8 RDW 13.7 Plt Count 270 MPV 10.9 Neut % (Auto) 72.7 Lymph % (Auto) 17.4 L Store[place] % (Auto) 7.9 Eos % (Auto) 0.6 Baso % (Auto) 0.8 Neut # (Auto) 4.8 Lymph # (Auto) 1.2 L [place] # (Auto) 0.5 Eos # (Auto) 0.0 Baso # (Auto) 0.1 Immature Gran % 0.6 Nucleated RBC % 0.0 Immature Gran # 0.04 Nucleated RBCs # 0.00 Immature Plt Fraction 0.0 D-Dimer, Quantitative Sodium 135 L Potassium 4.0 Chloride 98 Carbon Dioxide 23 Anion Gap 18.0 H BUN 30 H Creatinine 1.60 H GFR Calculation 50 BUN/Creatinine Ratio 18.00 Glucose 96 Calculated Osmolality 275.1 Calcium 9.0 Magnesium 2.1 Total Bilirubin 1.90 H AST 161 H ALT 83 H Alkaline Phosphatase 105 Total Creatine Kinase 374 H CK-MB (CK-2) 20.6 H CK and CKMB Interp 5.5 Troponin I 8.010 H B-Natriuretic Peptide 1348 H Total Protein 7.0 Albumin 3.3 L Globulin 3.7 H Albumin/Globulin Ratio 0.8 L Triglycerides Cholesterol LDL Cholesterol VLDL Cholesterol HDL Cholesterol Heart Disease Risk Ratio 04/24/17 04/24/17 04/24/17 13:12 18:00 21:20 WBC RBC Hgb Hct MCV MCH MCHC RDW Plt Count MPV Neut % (Auto) Lymph % (Auto) [place] % (Auto) Eos % (Auto) Baso % (Auto) Neut # (Auto) Lymph # (Auto) Storey # (Auto) Eos # (Auto) Baso # (Auto) Immature Gran % Nucleated RBC % Immature Gran # Nucleated RBCs # Immature Plt Fraction D-Dimer, Quantitative 4.1 Sodium Potassium Chloride Carbon Dioxide Anion Gap BUN Creatinine GFR Calculation BUN/Creatinine Ratio Glucose Calculated Osmolality Calcium Magnesium Total Bilirubin AST ALT Alkaline Phosphatase Total Creatine Kinase CK-MB (CK-2) CK and CKMB Interp Troponin I 7.810 H 8.170 H B-Natriuretic Peptide Total Protein Albumin Globulin Albumin/Globulin Ratio Triglycerides Cholesterol LDL Cholesterol VLDL Cholesterol HDL Cholesterol Heart Disease Risk Ratio 04/25/17 04/25/17 04/25/17 00:00 04:09 04:09 WBC 4.9 RBC 4.11 Hgb 13.6 L Hct 39.5 L MCV 96.1 MCH 33 MCHC 34.4 RDW 14.0 Plt Count 227 MPV 11.0 Neut % (Auto) 69.9 Lymph % (Auto) 18.1 L [place] % (Auto) 9.2 Eos % (Auto) 1.4 Baso % (Auto) 0.8 Neut # (Auto) 3.4 Lymph # (Auto) 0.9 L [place] # (Auto) 0.5 Eos # (Auto) 0.1 Baso # (Auto) 0.0 Immature Gran % 0.6 Nucleated RBC % 0.0 Immature Gran # 0.03 Nucleated RBCs # 0.00 Immature Plt Fraction 0.0 D-Dimer, Quantitative Sodium 134 L Potassium 3.9 Chloride 99 Carbon Dioxide 24 Anion Gap 14.9 BUN 38 H Creatinine 1.60 H GFR Calculation 49 BUN/Creatinine Ratio 23.00 H Glucose 99 Calculated Osmolality 276.2 Calcium 8.4 L Magnesium 2.2 Total Bilirubin 1.80 H AST 1120 H ALT 885 H Alkaline Phosphatase 96 Total Creatine Kinase CK-MB (CK-2) CK and CKMB Interp Troponin I 9.760 H B-Natriuretic Peptide Total Protein 6.4 Albumin 3.1 L Globulin 3.3 Albumin/Globulin Ratio 0.9 L Triglycerides 77 Cholesterol 165 LDL Cholesterol 115.0 VLDL Cholesterol 15.4 HDL Cholesterol 38 L Heart Disease Risk Ratio 4.34 04/25/17 04:09 WBC RBC Hgb Hct MCV MCH MCHC RDW Plt Count MPV Neut % (Auto) Lymph % (Auto) Storey % (Auto) Eos % (Auto) Baso % (Auto) Neut # (Auto) Lymph # (Auto) Store[place] # (Auto) Eos # (Auto) Baso # (Auto) Immature Gran % Nucleated RBC % Immature Gran # Nucleated RBCs # Immature Plt Fraction D-Dimer, Quantitative Sodium 134 L Potassium 3.9 Chloride 99 Carbon Dioxide 25 Anion Gap 13.9 BUN 38 H Creatinine 1.60 H GFR Calculation 49 BUN/Creatinine Ratio 23.00 H Glucose 102 Calculated Osmolality 276.2 Calcium 8.6 Magnesium Total Bilirubin AST ALT Alkaline Phosphatase Total Creatine Kinase CK-MB (CK-2) CK and CKMB Interp Troponin I B-Natriuretic Peptide Total Protein Albumin Globulin Albumin/Globulin Ratio Triglycerides Cholesterol LDL Cholesterol VLDL Cholesterol HDL Cholesterol Heart Disease Risk Ratio - Diagnostic Findings Procedure: Chest x-ray: image reviewed by me, report reviewed by me - EKG EKG results: interpreted by me, no acute changes EKG shows: sinus rhythm (Occasional PVC) IEleonora Shea, DO, personally performed the services described in this documentation, ascribed by Lora Wild RN in my presence, and it is both accurate and complete 652 .
--- NOTE | 2017-04-26 06:58 | Cardiology Progress Note ---
Assessment and Plan (1) Heart failure, systolic, with acute decompensation Status: Chronic Assessment and plan: Severely reduced LV systolic function, EF 10%, global hypokinesis. Etiology is ischemic. There is secondary mitral regurgitation tricuspid regurgitation. There is also left apical thrombus. Current Visit: Yes (2) Chronic passive hepatic congestion Status: Acute Assessment and plan: Initial LFT elevation on admission now trending upward with AST 1120, ALT 885. Suspect hepatic congestion based on clinical findings. Current Visit: Yes (3) Nonsustained ventricular tachycardia Status: Acute Assessment and plan: This is been stable since admission Current Visit: Yes (4) Renal insufficiency Status: Acute Assessment and plan: This appears chronic and stable post contrast exposure Current Visit: Yes (5) Ischemic cardiomyopathy Status: Chronic Assessment and plan: Severe triple-vessel coronary artery disease Current Visit: Yes (6) Coronary artery disease Status: Chronic Current Visit: Yes Qualifiers: Coronary Disease-Associated Artery/Lesion type: [place] artery [place] vs. transplanted heart: [place] heart Associated angina: without angina Qualified Code(s): I25.10 - Atherosclerotic heart disease of [place] coronary artery without angina pectoris (7) Ischemic mitral regurgitation Status: Chronic Assessment and plan: It is unclear whether this is secondary to left jugular cavity dilatation which is the most likely etiology. Certainly has diminished flow to the posterior lateral ventricular myocardium with multiple occluded vessels and subtotally occluded vessels. If this ventricular myocardium is viable he may be a revascularization candidate without mitral valve replacement or repair. Viability is paramount to note at this point. Recommend transfer to tertiary care facility for cardiac MRI to best assess viability. Based on the echocardiogram it appears this is not likely but is his best option for prognostication. Currently the prognosis appears extremely poor Current Visit: Yes Cardiology - PN: Subj Interval history: I discussed the findings of the left heart catheterization and the echocardiogram with the patient today. This is a very difficult situation. He is a very high risk for any intervention percutaneously without facilitation. Facilitated angioplasty is contraindicated at this point given his left apical thrombus. Is extremely high risk for surgical intervention and I feel it is imperative that we know about viability if there is any viability before either percutaneous attempts or surgical attempts are made to revascularize his heart. He has mitral regurgitation which certainly may be ischemic. Given his low ejection fraction he is not a candidate for valvular heart surgery if indicated given his severely depressed ejection fraction. He is very stoic and remains amazingly asymptomatic. I discussed with the patient and I feel that he needs cardiac magnetic resonance imaging to best define ventricular myocardial viability. This also will help define the mass at the apex of the left ventricle which could potentially provide planning of options as to how to address this presumed thrombus and revascularization options. I discussed with the patient and I have [facility] We do not have cardiac MRI capability here and I think they have this at [facility]. I am not aware if it is available at the [place]. This will allow the tertiary care facility to make plans about his approach to coronary disease if there are options other than medical therapy. Here at this time at our facility the only option is medical therapy and anticoagulation while waiting for resolution or stabilization of this apical thrombus. By transthoracic echocardiogram this apical thrombus appears organized and not doubt it is that acute. This however is not a very accurate way to assess the process. Exam (Progress Note) - Constitutional Vitals: Period Temp Pulse Resp BP Sys/Cano Pulse Ox Last 24 Hr 96.3 F-98.5 F 60-86 10- 74-127/7 92-99 General appearance: normal weight - Head Head exam: Present: normal inspection - Eye Eye exam: Present: EOMI Pupils: Present: [place] - Neck Neck exam: Present: other (He has JVD) - Respiratory Respiratory exam: Present: clear to auscultation bilaterally (Decreased breath sounds in the bases bilaterally) - Cardiovascular Cardiovascular exam: Present: regular rate and rhythm (Murmur of mitral regurgitation appears less prominent today. PMI is laterally displaced) - GI/Abdominal GI/Abdominal exam: Present: normal bowel sounds - Extremities Exam Extremities exam: Present: edema (And erythema of chronic brawny edematous changes) - Back Exam Back exam: Present: normal inspection - Neurological Exam Neurological exam: Present: alert, oriented X3 - Psychiatric Psychiatric exam: Present: normal affect, normal mood - Skin Skin exam: Present: normal color, warm, dry Result/EKG - Labs CBC & BMP: 04/26/17 04:28 04/26/17 04:28 Labs: Laboratory Results - last 24 hr 04/26/17 04/26/17 04:28 04:28 WBC 5.6 RBC 4.24 Hgb 14.2 Hct 40.6 L MCV 95.8 MCH 34 MCHC 35.0 RDW 14.1 Plt Count 157 D MPV 11.7 Neut % (Auto) 70.1 Lymph % (Auto) 13.0 L [place] % (Auto) 10.4 Eos % (Auto) 4.3 Baso % (Auto) 1.3 H Neut # (Auto) 3.9 Lymph # (Auto) 0.7 L [place] # (Auto) 0.6 Eos # (Auto) 0.2 Baso # (Auto) 0.1 Immature Gran % 0.9 Nucleated RBC % 0.7 Immature Gran # 0.05 Nucleated RBCs # 0.04 Immature Plt Fraction 4.9 Sodium 136 Potassium 3.9 Chloride 99 Carbon Dioxide 27 Anion Gap 13.9 BUN 44 H Creatinine 1.50 H GFR Calculation 53 BUN/Creatinine Ratio 29.00 H Glucose 87 Calculated Osmolality 281.0 Calcium 8.1 L Magnesium 2.2
--- NOTE | 2017-04-26 07:44 | Event Note ---
After multiple phone calls to the [facility] and also the [facility] I have at this point not had success in getting him to [facility] for cardiac MRI because of the bed situation at [facility]. Both the [facility] and the [facility] are working on this. For now we will continue anticoagulation and medication. He is continuing anticoagulation. I will discontinue his lisinopril in hopes of converting him to Entresto in 36 hours if possible.
--- NOTE | 2017-04-26 09:41 | Hospitalist Progress Note ---
Assessment and Plan (1) Non-ST elevated myocardial infarction (non-STEMI) Status: Acute Assessment and plan: I have read Dr Crews's notes this morning and Katarzyna is pursuing the [facility] transfer with the [facility] coordinator. Hopefully transfer him today. He is 100% service connected. I have reviewed the findings at echo and cath with his and she understands the need for transfer. I will move him to telemetry this morning and let him walk some- discussed this with Dr Crews who agrees though he expects he will be transferred to [facility] after his conversations with the docs there this morning. Note made of med changes by Dr Crews- stopped lisinopril and goal is Entresto in 36 hours. transaminases are increasing due to hepatic congestion. Current Visit: Yes (2) Ischemic cardiomyopathy Status: Chronic Current Visit: Yes (3) Nonsustained ventricular tachycardia Status: Acute Current Visit: Yes (4) Heart failure, systolic, with acute decompensation Status: Chronic Current Visit: Yes (5) Ischemic mitral regurgitation Status: Chronic Current Visit: Yes Hospitalist: Subjective Interval history: Mr Ortega is feeling good this morning. He denies shortness of breath or chest pain. He wants to get up to walk because he his getting stiff from sitting in bed for the last couple of days. I talked to his Alida and apprised her of his diagnoses and our plan for transfer to [facility]. Her questions were answered. SHe is sending shoes for him so he can walk around. The [facility] to [facility] and their coordinator is working on the transfer. Exam - Constitutional Vitals: Period Temp Pulse Resp BP Sys/Cano Pulse Ox Last 24 Hr 96.3 F-98.5 F 60-86 10- 74-125/ 92-99 General appearance: normal weight, no acute distress - Eye Eye exam: Present: EOMI. Absent: scleral icterus Pupils: Present: [place] - Respiratory Respiratory exam: Present: rales (few at bases) - Cardiovascular Cardiovascular exam: Present: JVD, regular rate and rhythm, systolic murmur - GI/Abdominal GI/Abdominal exam: Present: normal bowel sounds, soft. Absent: tenderness - Extremities Exam Extremities exam: Present: edema (decreased edema in bilateral lower exttremities) - Neurological Exam Neurological exam: Present: alert, oriented X3, CN II-XII intact. Absent: motor sensory deficit - Skin Skin exam: Present: warm, dry Results - Labs CBC & BMP: 04/26/17 04:28 04/26/17 04:28 Lab Results: I have reviewed the past 24 hour labs Specialty Discharge - Follow Up or Referrals
[2017-04-26] MEDS: CARVEDILOL 3.125 MG TABLET PO SCH ×2 (10:40→21:22)
[2017-04-26] MEDS: ASPIRIN EC 81 MG TABLET PO SCH (10:40)
[2017-04-26] MEDS: PANTOPRAZOLE 40 MG TABLET PO SCH (10:40)
[2017-04-26] MEDS: FUROSEMIDE 40 MG/4 ML VIAL IV SCH ×2 (10:40→15:13)
[2017-04-26] MEDS: ATORVASTATIN 40 MG TABLET PO SCH (21:22)
[2017-04-27] MEDS: ENOXAPARIN 80 MG/0.8 ML SYRINGE SUBCUT SCH (03:52)
[2017-04-27 05:25] LABS: Basophils # 0.1 10*3/uL (0.0-0.2); Basophils % 1.2 % (0.0-0.8); Eosinophils # 0.2 10*3/uL (0.0-0.87); Hematocrit 37.1 VOL% (42.0-52.0); Hemoglobin 12.3 GM/DL (14.0-18.0); Immature Granulocytes % 0.5 %; Immature Granulocytes Absolute 0.02 #; Lymphocytes # 0.6 10*3/uL (1.4-4.0); Lymphocytes % 13.6 % (21.2-54.2); Mean Corpuscular HGB Conc 33.2 GM/DL (32-36); Mean Corpuscular Hemoglobin 33 PG (27-34); Mean Corpuscular Volume 99.5 FL (87-102); Mean Platelet Volume 11.2 FL (9.6-12.0); Monocytes # 0.5 10*3/uL (0.11-0.8); Monocytes % 11.1 % (1.7-12.7); Neutrophils # 2.8 10*3/uL (1.4-7.4); Neutrophils % 68.6 % (38.7-73.9); Platelet Count 162 T/CUMM (130-400); Red Blood Count 3.73 MC/CUMM (3.8-5.5); Red Cell Distribution Width 13.9 % (9.3-17.3)
[2017-04-27 05:37] LABS: Calcium 8.2 MG/DL (8.5-10.1); Osmolality,Calculated 286.7 MOS/KG (273-304); Potassium 3.2 MMOL/L (3.5-5.1)
[2017-04-27] MEDS: ASPIRIN EC 81 MG TABLET PO SCH (08:32)
[2017-04-27] MEDS: CARVEDILOL 3.125 MG TABLET PO SCH ×2 (08:32→21:38)
[2017-04-27] MEDS: PANTOPRAZOLE 40 MG TABLET PO SCH (08:32)
[2017-04-27] MEDS: FUROSEMIDE 40 MG/4 ML VIAL IV SCH (08:34)
[2017-04-27] MEDS: POTASSIUM CHLORIDE 20 MEQ TABLET PO SCH ×3 (09:50→13:35)
--- NOTE | 2017-04-27 14:13 | Cardiology Progress Note ---
Junito Johansen Vanessa RN, am scribing for, and in the presence of, Jes Ramos DO 14 :13. Assessment and Plan - Time spent with patient Time spent with patient: Greater than 30 minutes (1) Heart failure, systolic, with acute decompensation Status: Chronic Assessment and plan: Severely reduced LV systolic function, EF 10%, global hypokinesis of ischemic etiology. Secondary mitral regurgitation/tricuspid regurgitation and also a left apical thrombus. Current Visit: Yes (2) Chronic passive hepatic congestion Status: Acute Assessment and plan: Initial LFT elevation on admission now trending upward with AST 1120, ALT 885 yesterday. Suspect hepatic congestion based on clinical findings. Current Visit: Yes (3) Nonsustained ventricular tachycardia Status: Acute Assessment and plan: Noted prior EKG on admit. He has been asymptomatic with this, and has not experienced any syncope, palpitations, or other. He has had some nonsustained ventricular irritability since admission. Current Visit: Yes (4) Renal insufficiency Status: Acute Assessment and plan: Appears to be chronic. Creatinine is stable and actually improved today status post contrast administration. Current Visit: Yes (5) Ischemic cardiomyopathy Status: Chronic Assessment and plan: Patient has severe triple-vessel coronary artery disease and global hypokinesis with EF 10%. Current Visit: Yes (6) Ischemic mitral regurgitation Status: Chronic Assessment and plan: It is unclear if this is secondary to left jugular cavity dilation which is most likely etiology. He has diminished flow to posterior lateral ventricular myocardium with multiple occluded and subtotally occluded vessels. Viability at this point is paramount. Based on echocardiogram findings, it appears viability is not likely but recommend transfer to tertiary facility for cardiac MRI. Current Visit: Yes (7) Hypokalemia Status: Acute Assessment and plan: Potassium 3.2 this morning. Will give KDur 20 meq PO every 2 hours x a total of 3 doses. Follow up BMP in the morning and replete electrolytes as needed. Current Visit: Yes Cardiology - PN: Subj Interval history: SEWER CONTRACTOR: DR. RAMOS (NEW) SUMMARY: Mr. Ortega, 71 year old WM, with no reported significant past medical history and now admitted to [facility] unit after presenting with fatigue and progressive dyspnea over the course of 2 weeks, significant lower extremity edema, and orthopnea. Patient is a reformed smoker having quit 6 years ago after smoking for 50 years. Chest x-ray on presentation with bilateral pleural effusions, cardiomegaly, mild fluid of right gutter. Echocardiogram with severely reduced LV systolic function, EF 10%, moderate biatrial enlargement, moderate to severe MR/TR with pulmonary hypertension (PA pressure 45 mmHg), and left ventricular apical thrombus. CTNI levels have waxed and waned with most recent 9.76 on 04/25. LFTs have been elevated with upward trend this admission ( did report malaria as a child). EKG on presentation with Q waves and some asymptomatic NSVT. Left heart catheterization on 04/25 revealed severe three- vessel CAD, and he is extremely high risk for surgical intervention. Given left apical thrombus, located angioplasty is contraindicated at this time. With severely reduced EF, he is not a candidate for valvular heart surgery. Now recommended for cardiac MRI, and he is being evaluated for transfer to tertiary care facility. Anticoagulants and medical management is continued. Anticipate initiation of Entresto. Last dose of lisinopril was Sunday, 04/25 , at 10 AM. April: Mr. Ortega looks well this morning. He is pleasant and conversant. Reports he has "walked back and forth all morning in his room at least 10 different times" and denies exertional dyspnea or chest discomfort. Says his visited him earlier, and he was very happy to see her. Eating breakfast this morning. Appetite is good. Lower extremity edema has improved but is still significant. Sinus rhythm with HR averaging 70. Occasional PVCs but there is no sustained ectopy or dysrhythmia. Labs reviewed. Hypokalemic, 3.2. Creatinine continues to improve, 1.3 this morning. Overall, given his current situation, he is doing amazingly well. I long discussion with Mr. Ortega today about her plan which is to send him home with a LifeVest and have him follow-up [facility] for cardiac MRI to assess viability. Based on the findings of the viability study, we will formulate a plan to proceed. The patient is amazingly asymptomatic his hemodynamics are stable his telemetry is stable. Due to the fact that he has some non-sustained VT I do not feel it would be safe to discharge without a LifeVest. I have signed the paperwork to initiate this process. Exam (Progress Note) - Constitutional Vitals: Period Temp Pulse Resp BP Sys/Cano Pulse Ox Last 24 Hr 96.7 F-97.3 F 64-76 15-20 84-121/50-81 94-100 Exam: General appearance: normal weight, no acute distress. - Head Head exam: Present: normal inspection. No laceration, contusion, abrasion - Eye Eye exam: Present: EOMI Pupils: Present: [place] - Neck Neck exam: Present: JVD - Respiratory Respiratory exam: Present: clear to auscultation bilaterally (Decreased breath sounds in the bases bilaterally). No wheeze, rhonchi, rales - Cardiovascular Cardiovascular exam: Present: regular rate and rhythm (Murmur of mitral regurgitation appears less prominent today. PMI is laterally displaced). No bradycardia or tachycardia. - GI/Abdominal GI/Abdominal exam: Present: normal bowel sounds, soft, nontender. Absent: Distended, firm. - Extremities Exam Extremities exam: Present: 3+ edema bilateral lower extremities (And erythema of chronic brawny edematous changes) - Back Exam Back exam: Present: normal inspection, no tenderness - Neurological Exam Neurological exam: Present: alert, oriented X3. Absent: Confusion, disorientation. - Psychiatric Psychiatric exam: Present: normal affect, normal mood. Patient is not anxious or depressed. - Skin Skin exam: Present: normal color, warm, dry, intact Result/EKG - Labs CBC & BMP: 04/27/17 04:44 04/27/17 04:44 Lab Results: I have reviewed the past 24 hour labs Labs: Laboratory Results - last 24 hr 04/27/17 04/27/17 04:44 04:44 WBC 4.0 RBC 3.73 L Hgb 12.3 L Hct 37.1 L MCV 99.5 MCH 33 MCHC 33.2 RDW 13.9 Plt Count 162 MPV 11.2 Neut % (Auto) 68.6 Lymph % (Auto) 13.6 L [place] % (Auto) 11.1 Eos % (Auto) 5.0 Baso % (Auto) 1.2 H Neut # (Auto) 2.8 Lymph # (Auto) 0.6 L [place] # (Auto) 0.5 Eos # (Auto) 0.2 Baso # (Auto) 0.1 Immature Gran % 0.5 Nucleated RBC % 0.0 Immature Gran # 0.02 Nucleated RBCs # 0.00 Sodium 138 Potassium 3.2 L Chloride 99 Carbon Dioxide 30 Anion Gap 12.2 BUN 45 H Creatinine 1.30 GFR Calculation 63 BUN/Creatinine Ratio 34.00 H Glucose 107 H Calculated Osmolality 286.7 Calcium 8.2 L Magnesium 2.0 - EKG EKG results: interpreted by me, no acute changes EKG shows: sinus rhythm Specialty Discharge - Follow Up or Referrals Eleonora Johansen Shea, DO, personally performed the services described in this documentation, ascribed by Lora Wild RN in my presence, and it is both accurate and complete .
[2017-04-27] MEDS: SPIRONOLACTONE 25 MG TABLET PO SCH ×2 (15:52→17:28)
[2017-04-27] MEDS: FUROSEMIDE 40 MG TABLET PO SCH ×2 (15:52→17:28)
--- NOTE | 2017-04-27 16:56 | Hospitalist Progress Note ---
Assessment and Plan (1) Non-ST elevated myocardial infarction (non-STEMI) Status: Acute Assessment and plan: hypokalemia- replace acute on chronic systolic CHF- meds adjusted by DR Crews. Home tomorrow if he is doing well on new meds and then he will have outpatient cardiac MRI in [place] with clinic follow up with Dr Crews. transaminases have increased due to hepatic congestion. Current Visit: Yes (2) Ischemic cardiomyopathy Status: Chronic Current Visit: Yes (3) Nonsustained ventricular tachycardia Status: Acute Current Visit: Yes (4) Heart failure, systolic, with acute decompensation Status: Chronic Current Visit: Yes (5) Ischemic mitral regurgitation Status: Chronic Current Visit: Yes Hospitalist: Subjective Interval history: Mr Ortega is feeling good this morning and has been walking in the room. I discussed plans for Mr Ortega with DR Crews. The [facility] has declined the transfer despite the arrangements Dr Crews made yesterday. He will start Entresto tonight and we will plan to discharge him tomorrow with outpatient appt for cardiac MRI. After MRI he will see Dr Crews in his clinic. Exam - Constitutional Vitals: Period Temp Pulse Resp BP Sys/Cano Pulse Ox Last 24 Hr 96.4 F-97.6 F 64-96 16-20 84-107/50-66 94-100 General appearance: normal weight, no acute distress - Eye Eye exam: Present: EOMI. Absent: scleral icterus - Respiratory Respiratory exam: Present: clear to auscultation bilaterally - Cardiovascular Cardiovascular exam: Present: regular rate and rhythm, systolic murmur - GI/Abdominal GI/Abdominal exam: Present: normal bowel sounds, soft. Absent: tenderness - Extremities Exam Extremities exam: Present: edema (1+ LE edema) Results - Labs CBC & BMP: 04/27/17 04:44 04/27/17 04:44 Lab Results: I have reviewed the past 24 hour labs Specialty Discharge - Follow Up or Referrals
[2017-04-27] MEDS ORDERED: ENOXAPARIN 60 MG/0.6 ML SYRINGE SUBCUT ONE (18:00)
[2017-04-27] MEDS: ATORVASTATIN 40 MG TABLET PO SCH (21:37)
[2017-04-27] MEDS: SACUBITRIL/VALSARTAN 49-51 MG TABLET PO SCH (21:38)
[2017-04-28 07:35] VITALS: BP 106/59
[2017-04-28] MEDS ORDERED: RIVAROXABAN 20 MG TABLET PO SCH (08:00)
[2017-04-28] MEDS: SACUBITRIL/VALSARTAN 49-51 MG TABLET PO SCH (08:14)
[2017-04-28] MEDS: CARVEDILOL 3.125 MG TABLET PO SCH (08:15)
[2017-04-28] MEDS: PANTOPRAZOLE 40 MG TABLET PO SCH (08:15)
[2017-04-28] MEDS: SPIRONOLACTONE 25 MG TABLET PO SCH (08:15)
[2017-04-28] MEDS: ASPIRIN EC 81 MG TABLET PO SCH (08:15)
[2017-04-28] MEDS: FUROSEMIDE 40 MG TABLET PO SCH (08:16)
--- NOTE | 2017-04-28 08:24 | Discharge Summary ---
Hospital Course - Hospital Course Hospital Course: Mr. Ortega is a 71-year-old white male who presented with significant past medical history. He had 2 weeks of shortness of breath worse with exertion relieved with rest but he denied any other associated symptoms. Chest x-ray reveals bilateral pleural effusions with cardiomegaly. Chest CT revealed no evidence of pulmonary emboli. Patient was admitted to the hospitalist service and treated medically. Serial cardiac biomarkers were performed and were elevated. Echocardiogram revealed severely reduced LV function with ejection fraction of 10%, moderate biatrial enlargement, moderate severe MR/TR with pulmonary hypertension and a left ventricular apical thrombus. Patient underwent cardiac catheterization on 04/25 revealing severe three-vessel coronary disease. Medical management was optimized and he is now stable and otherwise asymptomatic and ready for discharge with outpatient cardiac MRI. LifeVest has been obtained. He will follow-up with Dr. Howard after his viability study. - Time spent with patient Time with patient DS: Less than 30 minutes Diagnosis - Discharge Diagnosis (1) Non-ST elevated myocardial infarction (non-STEMI) Status: Acute (2) Ischemic cardiomyopathy Status: Chronic (3) Nonsustained ventricular tachycardia Status: Acute (4) Heart failure, systolic, with acute decompensation Status: Chronic (5) Chronic passive hepatic congestion Status: Acute (6) Hypokalemia Status: Acute Specialty Discharge - Follow Up or Referrals Discharge Plan - Discharge Data Disposition: Disch To Home/Self Care Condition at Discharge: Stable Discharge Diet: heart healthy Activity: resume usual activities as tolerated Contact your physician if you experience:: fever over 101, Nausea/Vomiting, Shortness of breath - Discharge Medications New Aspirin EC Tab 81 mg PO DAILY #30 tablet Atorvastatin [Lipitor] 80 mg PO BEDTIME #30 tablet Carvedilol [Coreg] 3.125 mg PO BID #60 tablet Furosemide Tab [Lasix Tab] 40 mg PO BID DIURETIC #60 tablet Nitroglycerin Sl Tab [Nitrostat] 0.4 mg SL Q5M PRN #25 tablet PRN Reason: Chest Pain Sacubitril/Valsartan [Entresto 49 mg-51 mg Tablet] 0.5 tablet PO BID #30 tablet Spironolactone [Aldactone] 25 mg PO DAILY #30 tablet Rivaroxaban [Xarelto] 20 mg PO DAILY W/BREAKFAST #30 tablet - Follow Up or Referral Follow Up: Eleonora,Andre, DO [Physician] - 1 Week (follow up with BMP) [facility]Other] - 2 Weeks - Forms/Instructions Instructions: Myocardial Infarction (GEN), Coronary Artery Disease (GEN), Left Heart Catheterization (DC), Heart Healthy Diet (GEN) Additional Discharge Instructions: Discharge Home after CBC, BMP results called to me Exam - Constitutional Vitals: Period Temp Pulse Resp BP Sys/Cano Pulse Ox Last 24 Hr 96.4 F-97.8 F 64-96 16-18 79-112/50-76 95-99 General appearance: no acute distress - Head Head exam: Present: normocephalic, atraumatic - Eye Eye exam: Present: EOMI Pupils: Present: [place] - ENT ENT exam: Present: normal exam - Neck Neck exam: Present: normal inspection - Respiratory Respiratory exam: Present: clear to auscultation bilaterally. Absent: rales, rhonchi, wheezes - Cardiovascular Cardiovascular exam: Present: regular rate and rhythm - GI/Abdominal GI/Abdominal exam: Present: normal bowel sounds, soft. Absent: tenderness, rebound - Extremities Exam Extremities exam: Absent: calf tenderness, edema - Back Exam Back exam: Present: normal inspection - Neurological Exam Neurological exam: Present: alert, oriented X3, CN II-XII intact. Absent: motor sensory deficit - Psychiatric Psychiatric exam: Present: normal affect, normal mood. Absent: agitated, anxious - Skin Skin exam: Present: warm, dry. Absent: erythema Discharge Results - Imaging and Cardiology Procedure: Chest x-ray: report reviewed by me, CT - chest: report reviewed by me DS: Provider Date of admission: 04/24/17 15:47 Primary care physician: . No PCP Attending physician on admission: Marcella Narayan MD Consults: 04/24/17 15:50 Consult to Physician [CONS] Routine Comment: Consulting Provider: Cardiology - [facility] Consult to Specialist Group: Cardiology 04/25/17 06:28 Consult to Cardiac Rehabilitation [CONS] Routine Reason for Cardiac Rehabilitation: Risk Factor Modification 04/25/17 11:23 Consult to Cardiac Rehabilitation [CONS] Routine Reason for Cardiac Rehabilitation: Risk Factor Modification Other Consult Comment: Evaluate and recommend 04/27/17 10:44 Consult to Case Mgmt/Social Srvs [CONS] Routine Reason for Case Mgmt/Social Srvs: Equipment Consult Comment: Life Vest Discharging clinician: Miko Negro Expected date of discharge: 04/28/17
[2017-04-28 09:17] LABS: Basophils % 0.9 % (0.0-0.8); Eosinophils # 0.2 10*3/uL (0.0-0.87); Eosinophils % 3.2 % (0.00-10.9); Hematocrit 40.8 VOL% (42.0-52.0); Immature Granulocytes % 0.6 %; Immature Granulocytes Absolute 0.03 #; Lymphocytes # 0.6 10*3/uL (1.4-4.0); Lymphocytes % 13.1 % (21.2-54.2); Mean Corpuscular HGB Conc 34.3 GM/DL (32-36); Mean Corpuscular Hemoglobin 33 PG (27-34); Mean Corpuscular Volume 97.4 FL (87-102); Mean Platelet Volume 11.4 FL (9.6-12.0); Monocytes # 0.3 10*3/uL (0.11-0.8); Monocytes % 7.3 % (1.7-12.7); Neutrophils # 3.5 10*3/uL (1.4-7.4); Neutrophils % 74.9 % (38.7-73.9); Platelet Count 200 T/CUMM (130-400); Red Blood Count 4.19 MC/CUMM (3.8-5.5); Red Cell Distribution Width 13.9 % (9.3-17.3); White Blood Count 4.7 T/CUMM (4-12)
--- NOTE | 2017-04-28 09:20 | Cardiology Progress Note ---
Assessment and Plan (1) Heart failure, systolic, with acute decompensation Status: Chronic Assessment and plan: Severely reduced LV systolic function, EF 10%, global hypokinesis of ischemic etiology. Secondary mitral regurgitation/tricuspid regurgitation and also a left apical thrombus. Awaiting MRI for viability. Current Visit: Yes (2) Chronic passive hepatic congestion Status: Acute Assessment and plan: Initial LFT elevation on admission now trending upward with AST 1120, ALT 885 yesterday. Suspect hepatic congestion based on clinical findings. Current Visit: Yes (3) Nonsustained ventricular tachycardia Status: Acute Assessment and plan: Noted prior EKG on admit. He has been asymptomatic with this, and has not experienced any syncope, palpitations, or other. He has had some nonsustained ventricular irritability since admission. LifeVest is in place Current Visit: Yes (4) Renal insufficiency Status: Acute Assessment and plan: Appears to be chronic. Creatinine is stable and new labs pending this morning Current Visit: Yes (5) Ischemic cardiomyopathy Status: Chronic Assessment and plan: Patient has severe triple-vessel coronary artery disease and global hypokinesis with EF 10%. Cardiac MRI for viability assessment Current Visit: Yes (6) Ischemic mitral regurgitation Status: Chronic Assessment and plan: It is unclear if this is secondary to left jugular cavity dilation which is most likely etiology. He has diminished flow to posterior lateral ventricular myocardium with multiple occluded and subtotally occluded vessels. Viability at this point is paramount. Based on echocardiogram findings, it appears viability is not likely but recommend transfer to tertiary facility for cardiac MRI. Current Visit: Yes (7) Hypokalemia Status: Acute Assessment and plan: Potassium 3.2 this morning. Will give KDur 20 meq PO every 2 hours x a total of 3 doses. Follow up BMP in the morning and replete electrolytes as needed. Current Visit: Yes Cardiology - PN: Subj Interval history: Mr. Ortega is completely asymptomatic this morning. His labs are pending. I discussed with Dr. Coffey. The patient has his LifeVest on. He is tolerating his Entresto and I gave samples for 2 weeks worth. The plan is for him to have his cardiac [facility] ([facility] at [facility]. I will follow him up next week and recheck his electrolytes and see if he is tolerating all of his medications. I have asked him to call me in the interim if he feels poorly has hypertension palpitations shortness of breath or neurologic deficits. He is to continue his anticoagulation he is also to call me if he has any evidence of bleeding. Exam (Progress Note) - Constitutional Vitals: Period Temp Pulse Resp BP Sys/Cano Pulse Ox Last 24 Hr 96.4 F-97.8 F 64-96 16-18 79-112/50-76 95-99 General appearance: normal weight - Head Head exam: Present: normal inspection - Eye Eye exam: Present: EOMI Pupils: Present: [place] - Neck Neck exam: Present: normal inspection - Respiratory Respiratory exam: Present: rales (Very scant rales at the bases) - Cardiovascular Cardiovascular exam: Present: regular rate and rhythm (PMI is laterally displaced murmur of mitral regurgitation soft) - GI/Abdominal GI/Abdominal exam: Present: normal bowel sounds - Extremities Exam Extremities exam: Present: edema (This is continuing to improve) - Neurological Exam Neurological exam: Present: alert, oriented X3 - Psychiatric Psychiatric exam: Present: normal affect - Skin Skin exam: Present: normal color Result/EKG - Labs CBC & BMP: 04/27/17 04:44 04/27/17 04:44 Specialty Discharge - Follow Up or Referrals [facility]Other[facility] - 2 Weeks Jes Crews DO [Physician] - 1 Week (follow up with BMP)
[2017-04-28 09:45] LABS: Calcium 8.5 MG/DL (8.5-10.1); Osmolality,Calculated 279.2 MOS/KG (273-304); Potassium 3.7 MMOL/L (3.5-5.1)
== END 2017-04-28 11:39 | disposition home or self-care (01) | DRG 280 ==
LOC: N.ED 12:17 → SUATTDRO 15:47 → N.EDINP 15:47 → N.CC 16:29 → N.TELES 04-26 15:40
PROVIDERS: ADMIT Internal Medicine; ATTEND Hospitalist